=== PATIENT | male | born 1990 | race Hispanic/Latino ===

== ENCOUNTER → 2016-12-14 | Outpatient (CLI) | payer OTHER ==
[~2016-12-14] MED LIST: METHACHOLINE KIT (J7674) INH ONE
--- NOTE | 2016-12-14 10:21 | PFTRPT ---
Tech: Rikki BILLINGS RRT Age: 26 Sex: Male Race: <Unspecified> Height: 69.00 Inches Weight: 198.00 Lbs BSA: 2.06 Diagnosis: R06.02 METHACHOLINE CHALLENGE REPORT: ORDERING PROVIDER: MANDEEP Stark DATE OF SERVICE: 12/14/16 INTERPRETATION: The study was of excellent technical quality. Under protocol, methacholine was administered. At a dose of 2.5 mg (13.875 CDUs), a 22% decline in the FEV1 was noted. The PC20 of 1.70 is significant. Flow rates returned to baseline post bronchodilator administration. IMPRESSION: Positive methacholine challenge study. MTDD
== END ==
LOC: M CARPUL 09:32
PROVIDERS: ATTEND Nurse Practitioner Adult Health
DX: R06.02 Shortness of breath (principal)